=== PATIENT | male | born 1990 ===

== ENCOUNTER 2017-06-20 16:06 | Emergency (ER) | payer SELFPAY ==
[~2017-06-20] VITALS: Ht 182.9 cm; Wt 84.0 kg
[2017-06-20 16:10] VITALS: BP 144/69; PULSE 96; RESP 20; TEMP 98.4; O2SAT 100
== END 2017-06-20 19:13 | disposition left against medical advice (07) ==
LOC: NED 16:06
DX: R19.8 Other specified symptoms and signs involving the digestive system and abdomen (principal)
CPT/HCPCS: 99281